=== PATIENT | male | born 1935 | race Caucasian/White ===

== ENCOUNTER 2017-12-24 17:35 | Inpatient (IN) | payer MEDICARE ==
[~2017-12-24] VITALS: Ht 177.8 cm; Wt 86.4 kg
[2017-12-24 18:04] LABS: BASOPHILS % (AUTO) 0.6 % (0.0-5.0); EOSINOPHILS % (AUTO) 3.6 % (0.0-8.0); HEMATOCRIT 43.8 % (42-54); LYMPHOCYTES % (AUTO) 19.6 % (21.0-51.0); MEAN CORPUSCULAR HEMOGLOBIN 31.9 pg (27.0-33.0); MEAN CORPUSCULAR HGB CONC 34.5 g/dL (32.0-36.0); MEAN CORPUSCULAR VOLUME 92.3 fL (79-99); MONOCYTES % (AUTO) 7.3 % (3.0-13.0); NEUTROPHILS % (AUTO) 68.9 % (40.0-77.0); NUCLEATED RED BLOOD CELLS 0.1 % (0.0-0.19); PLATELET COUNT (AUTO) 138 K/uL (130-400); RED BLOOD CELL COUNT(AUTO) 4.75 MIL/uL (4.50-6.20); RED CELL DISTRIBUTION WIDTH 14.2 % (11.0-15.5)
[2017-12-24 18:15] LABS: INR 1.63 (0.85-1.15)
[2017-12-24 18:24] LABS: CREATININE 1.5 mg/dL (0.5-1.5); POTASSIUM 4.9 mmol/L (3.5-5.1)
[2017-12-24 18:29] LABS: ALBUMIN 3.4 g/dL (3.5-5.0); BILIRUBIN,TOTAL 0.6 mg/dL (0.2-1.0)
[2017-12-24] MEDS ORDERED: MORPHINE SULFATE 2 MG/ML 1ML SYG ONE ×2 (19:48→22:13)
[2017-12-24 23:04] VITALS: BP 139/65
[2017-12-25] VITALS: BP 140/66
[2017-12-25] MEDS ORDERED: MORPHINE SULFATE 2 MG/ML 1ML SYG ONE (00:38)
[2017-12-25] MEDS ORDERED: ACETAMINOPHEN 325 MG TAB PO PRN (01:15)
[2017-12-25] MEDS ORDERED: HYDRALAZINE HCL 20 MG/ML VIAL IV PRN (01:15)
[2017-12-25] MEDS: SODIUM CHLORIDE 0.9% 1000ML 1,000 ML IV SCH ×2 (02:22→13:22)
[2017-12-25] MEDS ORDERED: WARF4TAB41 PO (02:37)
[2017-12-25] MEDS ORDERED: WARF2TAB57 PO (02:37)
[2017-12-25 04:00] VITALS: BP 130/76
[2017-12-25 05:46] LABS: HEMATOCRIT 41.9 % (42-54); MEAN CORPUSCULAR HEMOGLOBIN 32.1 pg (27.0-33.0); MEAN CORPUSCULAR HGB CONC 35.1 g/dL (32.0-36.0); MEAN CORPUSCULAR VOLUME 91.5 fL (79-99); NUCLEATED RED BLOOD CELLS 0.1 % (0.0-0.19); PLATELET COUNT (AUTO) 106 K/uL (130-400); RED BLOOD CELL COUNT(AUTO) 4.57 MIL/uL (4.50-6.20); RED CELL DISTRIBUTION WIDTH 14.1 % (11.0-15.5); WHITE BLOOD COUNT (AUTO) 8.1 K/uL (4.8-10.8)
[2017-12-25 05:51] LABS: INR 1.67 (0.85-1.15); PROTHROMBIN TIME 17.4 SEC (9.6-11.6)
[2017-12-25 05:54] LABS: CREATININE 1.2 mg/dL (0.5-1.5); POTASSIUM 5.3 mmol/L (3.5-5.1)
[2017-12-25] MEDS: INSULIN HUMULIN R 100 UNIT/ML 3ML SQ SCH ×4 (06:29→20:30)
[2017-12-25 07:53] VITALS: BP 141/81
[2017-12-25] MEDS: MORPHINE SULFATE 2 MG/ML 1ML SYG IVP PRN (08:06)
[2017-12-25] MEDS ORDERED: KETOROLAC TROMETHAMINE 30MG/ML ONE (08:48)
[2017-12-25] MEDS: KETOROLAC TROMETHAMINE 60 MG/2 ML VIAL IV SCH (09:00)
[2017-12-25] MEDS ORDERED: ENOXAPARIN SODIUM 40 MG/0.4 ML SYRINGE SQ SCH (09:00)
[2017-12-25 11:16] VITALS: BP 106/64
[2017-12-25] MEDS: MEPERIDINE HCL/PF 25 MG/0.5 ML AMPUL IM PRN ×2 (12:09→17:39)
[2017-12-25] MEDS: PROMETHAZINE HCL 25 MG/ML 1ML AMPULE IM PRN ×2 (12:11→17:39)
[2017-12-25] MEDS ORDERED: INSLAN SQ (12:30)
[2017-12-25] MEDS ORDERED: DILT180C94 PO (12:30)
[2017-12-25] MEDS ORDERED: PANT40TA25 PO (12:30)
[2017-12-25] MEDS ORDERED: LISI10TA7 PO (12:30)
[2017-12-25] MEDS ORDERED: TRAM50TA4 PO (12:30)
[2017-12-25] MEDS ORDERED: PREG150C PO (12:30)
[2017-12-25] MEDS ORDERED: ATOR40TA69 PO (12:30)
[2017-12-25] MEDS ORDERED: CHOL100018 PO (12:30)
[2017-12-25] MEDS ORDERED: VENL75CA97 PO (12:30)
[2017-12-25] MEDS ORDERED: LEVE500T19 PO (12:30)
[2017-12-25] MEDS ORDERED: LEVO25TA54 PO (12:30)
[2017-12-25 16:37] VITALS: BP 139/67
[2017-12-25 20:00] VITALS: BP 140/74
[2017-12-25] MEDS: LEVETIRACETAM 500 MG TABLET PO SCH (21:10)
[2017-12-25] MEDS: PREGABALIN 75 MG CAPSULE PO SCH (21:11)
[2017-12-26] VITALS: BP 124/68
[2017-12-26 04:00] VITALS: BP 145/78
[2017-12-26] MEDS: MORPHINE SULFATE 2 MG/ML 1ML SYG IVP PRN ×3 (04:22→21:43)
[2017-12-26 05:52] LABS: HEMATOCRIT 37.7 % (42-54); MEAN CORPUSCULAR HEMOGLOBIN 32.5 pg (27.0-33.0); MEAN CORPUSCULAR HGB CONC 35.4 g/dL (32.0-36.0); PLATELET COUNT (AUTO) 93 K/uL (130-400); RED BLOOD CELL COUNT(AUTO) 4.09 MIL/uL (4.50-6.20); RED CELL DISTRIBUTION WIDTH 14.6 % (11.0-15.5); WHITE BLOOD COUNT (AUTO) 6.8 K/uL (4.8-10.8)
[2017-12-26 06:01] LABS: INR 1.61 (0.85-1.15); PARTIAL THROMBOPLASTIN TIME 35.5 SEC (26.3-35.5); PROTHROMBIN TIME 16.7 SEC (9.6-11.6)
[2017-12-26 06:06] LABS: CREATININE 1.5 mg/dL (0.5-1.5); MAGNESIUM 1.7 mg/dL (1.80-2.40); POTASSIUM 4.7 mmol/L (3.5-5.1)
[2017-12-26] MEDS: INSULIN HUMULIN R 100 UNIT/ML 3ML SQ SCH ×4 (06:15→21:24)
[2017-12-26] MEDS: LEVOTHYROXINE 25 MCG TABLET PO SCH (06:51)
[2017-12-26 07:58] VITALS: BP 139/75
[2017-12-26] MEDS: PREGABALIN 75 MG CAPSULE PO SCH ×2 (08:45→21:16)
[2017-12-26] MEDS: LISINOPRIL 10 MG TABLET PO SCH (08:46)
[2017-12-26] MEDS: VENLAFAXINE HCL XR 37.5 MG CAP PO SCH (08:46)
[2017-12-26] MEDS: LEVETIRACETAM 500 MG TABLET PO SCH (08:46)
[2017-12-26] MEDS: DILTIAZEM HCL 180 MG CAP.SR.24H PO SCH (08:46)
[2017-12-26] MEDS: KETOROLAC TROMETHAMINE 60 MG/2 ML VIAL IV SCH (09:00)
[2017-12-26] MEDS ORDERED: COMPOUND IV MISC 1 EACH IVSOLN MISC PRN (11:00)
[2017-12-26 11:39] VITALS: BP 155/85
[2017-12-26] MEDS: LEVETIRACETAM 750 MG in SODIUM CHLORIDE 0.9% 100 ML IV SCH (12:12)
[2017-12-26] MEDS: SODIUM CHLORIDE 0.9% 1000ML 1,000 ML IV SCH (15:12)
[2017-12-26 16:24] VITALS: BP 151/56
[2017-12-26] MEDS ORDERED: CEFAZOLIN SODIUM 1 GM VIAL IVP SCH (18:30)
[2017-12-26 20:00] VITALS: BP 114/67
[2017-12-27] VITALS (24 sets, daily range): BP systolic 102–166; BP diastolic 51–98
[2017-12-27] MEDS: LEVETIRACETAM 750 MG in SODIUM CHLORIDE 0.9% 100 ML IV SCH ×2 (00:06→12:03)
[2017-12-27] MEDS ORDERED: MORPHINE SULFATE 4 MG/1ML SYG ONE ×2 (02:54→10:51)
[2017-12-27 05:46] LABS: HEMATOCRIT 35.1 % (42-54); MEAN CORPUSCULAR HEMOGLOBIN 32.6 pg (27.0-33.0); MEAN CORPUSCULAR HGB CONC 35.3 g/dL (32.0-36.0); MEAN CORPUSCULAR VOLUME 92.3 fL (79-99); PLATELET COUNT (AUTO) 87 K/uL (130-400); RED CELL DISTRIBUTION WIDTH 14.3 % (11.0-15.5); WHITE BLOOD COUNT (AUTO) 5.8 K/uL (4.8-10.8)
[2017-12-27 05:55] LABS: CREATININE 1.2 mg/dL (0.5-1.5); MAGNESIUM 1.7 mg/dL (1.80-2.40); POTASSIUM 4.4 mmol/L (3.5-5.1)
[2017-12-27 05:56] LABS: INR 1.23 (0.85-1.15); PARTIAL THROMBOPLASTIN TIME 31.9 SEC (26.3-35.5); PROTHROMBIN TIME 12.9 SEC (9.6-11.6)
[2017-12-27] MEDS ORDERED: CEFAZOLIN SODIUM 1 GM VIAL IVP SCH (06:00)
[2017-12-27] MEDS ORDERED: DEXAMETHASONE SOD PHOSPHATE 10MG/ML 1ML VIAL ONE (06:56)
[2017-12-27] MEDS ORDERED: LIDOCAINE PF 2% 5ML ABBOJECT ONE (06:56)
[2017-12-27] MEDS ORDERED: GLYCOPYRROLATE 0.2 MG/ML 5 ML VIAL ONE (06:56)
[2017-12-27] MEDS ORDERED: PROPOFOL 10 MG/ML 20ML VIAL IV ONE (06:57)
[2017-12-27] MEDS ORDERED: MIDAZOLAM HCL 1 MG/ML 2ML VIAL ONE (06:57)
[2017-12-27] MEDS ORDERED: FENTANYL CITRATE PF 50 MCG/1 ML 2ML VIAL ONE ×2 (06:57→09:05)
[2017-12-27] MEDS: LEVOTHYROXINE 25 MCG TABLET PO SCH (07:30)
[2017-12-27] MEDS: INSULIN HUMULIN R 100 UNIT/ML 3ML SQ SCH ×4 (07:30→22:27)
[2017-12-27] MEDS ORDERED: ROPIVACAINE 0.5% 5MG/ML 30ML IJ ONE (08:26)
[2017-12-27] MEDS: KETOROLAC TROMETHAMINE 60 MG/2 ML VIAL IV SCH (09:00)
[2017-12-27] MEDS: LISINOPRIL 10 MG TABLET PO SCH (09:00)
[2017-12-27] MEDS: DILTIAZEM HCL 180 MG CAP.SR.24H PO SCH (11:06)
[2017-12-27] MEDS: VENLAFAXINE HCL XR 37.5 MG CAP PO SCH (11:06)
[2017-12-27] MEDS: PREGABALIN 75 MG CAPSULE PO SCH ×2 (11:06→22:35)
[2017-12-27] MEDS: MEPERIDINE HCL/PF 25 MG/0.5 ML AMPUL IM PRN (11:24)
[2017-12-27] MEDS: PROMETHAZINE HCL 25 MG/ML 1ML AMPULE IM PRN (11:24)
[2017-12-27] MEDS: CEFAZOLIN SODIUM 1 GM VIAL IVP SCH (17:04)
[2017-12-27] MEDS ORDERED: WARFARIN SODIUM 2 MG TAB PO SCH (18:15)
[2017-12-27] MEDS ORDERED: MAGNESIUM SULFATE 1 GM in SODIUM CHLORIDE 0.9% 50 ML IV SCH (18:15)
[2017-12-27] MEDS: MORPHINE SULFATE 2 MG/ML 1ML SYG IVP PRN ×2 (18:18→22:38)
[2017-12-27] MEDS: ENOXAPARIN SODIUM 40 MG/0.4 ML SYRINGE SQ SCH (18:22)
[2017-12-27] MEDS: SODIUM CHLORIDE 0.9% 1000ML 1,000 ML IV SCH (22:35)
[2017-12-28] VITALS: BP 127/83
[2017-12-28] MEDS: CEFAZOLIN SODIUM 1 GM VIAL IVP SCH (00:19)
[2017-12-28] MEDS: LEVETIRACETAM 750 MG in SODIUM CHLORIDE 0.9% 100 ML IV SCH ×3 (00:19→22:14)
[2017-12-28] MEDS: SODIUM CHLORIDE 0.9% 1000ML 1,000 ML IV SCH ×2 (01:22→22:14)
[2017-12-28 04:00] VITALS: BP 131/89
[2017-12-28 05:48] LABS: HEMATOCRIT 28.1 % (42-54); MEAN CORPUSCULAR HEMOGLOBIN 33.7 pg (27.0-33.0); MEAN CORPUSCULAR HGB CONC 36.4 g/dL (32.0-36.0); MEAN CORPUSCULAR VOLUME 92.5 fL (79-99); NUCLEATED RED BLOOD CELLS 0.1 % (0.0-0.19); PLATELET COUNT (AUTO) 95 K/uL (130-400); RED BLOOD CELL COUNT(AUTO) 3.04 MIL/uL (4.50-6.20); RED CELL DISTRIBUTION WIDTH 14.5 % (11.0-15.5)
[2017-12-28] MEDS: LEVOTHYROXINE 25 MCG TABLET PO SCH (05:56)
[2017-12-28 05:58] LABS: CREATININE 1.3 mg/dL (0.5-1.5); MAGNESIUM 1.6 mg/dL (1.80-2.40); POTASSIUM 4.5 mmol/L (3.5-5.1)
[2017-12-28] MEDS: INSULIN HUMULIN R 100 UNIT/ML 3ML SQ SCH ×4 (06:02→21:16)
[2017-12-28 06:17] LABS: INR 1.78 (0.85-1.15); PROTHROMBIN TIME 18.5 SEC (9.6-11.6)
[2017-12-28 07:59] VITALS: BP 111/64
[2017-12-28 08:03] LABS: BAND NEUTROPHILS % (MANUAL) 1 % (0-2); LYMPHOCYTES % (MANUAL) 17 % (22-44); MAN.DIFF COMMENT-IMPRESSION MANUAL DIFFERENTIAL; MONOCYTES % (MANUAL) 7 % (2-9); SEGMENTED NEUTROPHILS % 75 % (40-70)
[2017-12-28 08:04] LABS: PLATELET MORPHOLOGY COMMENT DECREASED
[2017-12-28] MEDS: ENOXAPARIN SODIUM 40 MG/0.4 ML SYRINGE SQ SCH (09:00)
[2017-12-28] MEDS: KETOROLAC TROMETHAMINE 60 MG/2 ML VIAL IV SCH (09:00)
[2017-12-28] MEDS: DILTIAZEM HCL 180 MG CAP.SR.24H PO SCH (09:06)
[2017-12-28] MEDS: LISINOPRIL 10 MG TABLET PO SCH (09:06)
[2017-12-28] MEDS: PREGABALIN 75 MG CAPSULE PO SCH ×2 (09:07→21:06)
[2017-12-28] MEDS: VENLAFAXINE HCL XR 37.5 MG CAP PO SCH (09:07)
[2017-12-28] MEDS: MORPHINE SULFATE 2 MG/ML 1ML SYG IVP PRN (09:44)
[2017-12-28 12:00] VITALS: BP 112/58
[2017-12-28] MEDS: WARFARIN SODIUM 2 MG TAB PO SCH (16:00)
[2017-12-28] MEDS ORDERED: WARFARIN SODIUM 2 MG TAB PO SCH (16:00)
[2017-12-28 16:56] VITALS: BP 137/65
[2017-12-28 19:23] VITALS: BP 128/59
[2017-12-29] VITALS: BP 124/65
[2017-12-29 04:00] VITALS: BP 128/67
[2017-12-29 05:07] LABS: INR 1.83 (0.85-1.15)
[2017-12-29] MEDS: LEVOTHYROXINE 25 MCG TABLET PO SCH (05:25)
[2017-12-29] MEDS: INSULIN HUMULIN R 100 UNIT/ML 3ML SQ SCH ×4 (05:59→20:57)
[2017-12-29 08:11] VITALS: BP 128/68
[2017-12-29] MEDS: KETOROLAC TROMETHAMINE 60 MG/2 ML VIAL IV SCH (09:00)
[2017-12-29] MEDS: DILTIAZEM HCL 180 MG CAP.SR.24H PO SCH (10:05)
[2017-12-29] MEDS: LISINOPRIL 10 MG TABLET PO SCH (10:06)
[2017-12-29] MEDS: VENLAFAXINE HCL XR 37.5 MG CAP PO SCH (10:06)
[2017-12-29 12:08] VITALS: BP 107/63
[2017-12-29] MEDS: LEVETIRACETAM 750 MG in SODIUM CHLORIDE 0.9% 100 ML IV SCH ×2 (12:31→23:18)
[2017-12-29] MEDS ORDERED: WARFARIN SODIUM 2 MG TAB PO SCH (16:00)
[2017-12-29] MEDS: DOCUSATE SODIUM 100 MG CAP PO SCH ×2 (16:42→20:54)
[2017-12-29] MEDS: SODIUM CHLORIDE 0.9% 1000ML 1,000 ML IV SCH (17:22)
[2017-12-29 17:26] VITALS: BP 122/67
[2017-12-29] MEDS ORDERED: LACTULOSE 20 GM/30 ML UDCUP PO PRN (18:45)
[2017-12-29 20:00] VITALS: BP 113/64
[2017-12-29] MEDS: ACETAMINOPHEN EXTRA STRENGTH 500 MG TABLET PO SCH (23:22)
[2017-12-30] VITALS: BP 120/58
[2017-12-30 04:00] VITALS: BP 126/67
[2017-12-30] MEDS: INSULIN HUMULIN R 100 UNIT/ML 3ML SQ SCH ×3 (06:06→17:57)
[2017-12-30] MEDS: LEVOTHYROXINE 25 MCG TABLET PO SCH (06:28)
[2017-12-30] MEDS: ACETAMINOPHEN EXTRA STRENGTH 500 MG TABLET PO SCH ×3 (06:28→17:59)
[2017-12-30 08:14] VITALS: BP 112/68
[2017-12-30] MEDS: DILTIAZEM HCL 180 MG CAP.SR.24H PO SCH (08:35)
[2017-12-30] MEDS: DOCUSATE SODIUM 100 MG CAP PO SCH (08:35)
[2017-12-30] MEDS: LISINOPRIL 10 MG TABLET PO SCH (08:36)
[2017-12-30] MEDS: VENLAFAXINE HCL XR 37.5 MG CAP PO SCH (08:36)
[2017-12-30] MEDS: MORPHINE SULFATE 2 MG/ML 1ML SYG IVP PRN (08:43)
[2017-12-30 12:00] VITALS: BP 138/75
[2017-12-30] MEDS: LEVETIRACETAM 750 MG in SODIUM CHLORIDE 0.9% 100 ML IV SCH (12:57)
[2017-12-30] MEDS: SODIUM CHLORIDE 0.9% 1000ML 1,000 ML IV SCH (13:22)
[2017-12-30 16:00] VITALS: BP 116/73
[2017-12-30] MEDS: WARFARIN SODIUM 2 MG TAB PO SCH (17:58)
[2017-12-31 00:38] VITALS: BP 127/89
[2017-12-31] MEDS: INSULIN HUMULIN R 100 UNIT/ML 3ML SQ SCH ×2 (01:10→06:40)
[2017-12-31] MEDS: DOCUSATE SODIUM 100 MG CAP PO SCH ×2 (01:11→08:44)
[2017-12-31] MEDS: ACETAMINOPHEN EXTRA STRENGTH 500 MG TABLET PO SCH ×2 (01:12→06:44)
[2017-12-31] MEDS: LEVETIRACETAM 750 MG in SODIUM CHLORIDE 0.9% 100 ML IV SCH (01:12)
[2017-12-31 04:12] VITALS: BP 138/67
[2017-12-31] MEDS: LEVOTHYROXINE 25 MCG TABLET PO SCH (06:44)
[2017-12-31 07:47] VITALS: BP 157/98
[2017-12-31] MEDS: VENLAFAXINE HCL XR 37.5 MG CAP PO SCH (08:44)
[2017-12-31] MEDS: DILTIAZEM HCL 180 MG CAP.SR.24H PO SCH (08:44)
[2017-12-31] MEDS: LISINOPRIL 10 MG TABLET PO SCH (08:45)
[2017-12-31] MEDS ORDERED: WARFARIN SODIUM 2 MG TAB PO SCH (16:00)
[2018-01-03] MEDS ORDERED: WARFARIN SODIUM 2 MG TAB PO SCH (16:00)
== END 2017-12-31 10:04 | DRG 470 ==
LOC: EDH 17:35 → EDHIP 21:19 → 4CH 22:27 → 4BH 12-27 20:24
PROVIDERS: ADMIT Family Medicine; ATTEND Family Medicine
PROC: 0SRS0JA Replacement of Left Hip Joint, Femoral Surface with Synthetic Substitute, Uncemented, Open Approach (ICD-10-PCS; principal; 2017-12-27 07:30)
DX: S72.002A Fracture of unspecified part of neck of left femur, initial encounter for closed fracture (principal); E83.42 Hypomagnesemia; I69.354 Hemiplegia and hemiparesis following cerebral infarction affecting left non-dominant side; R56.9 Unspecified convulsions; E11.9 Type 2 diabetes mellitus without complications; E86.0 Dehydration; I48.2 Chronic atrial fibrillation; E03.9 Hypothyroidism, unspecified; E78.5 Hyperlipidemia, unspecified; I10 Essential (primary) hypertension; W01.0XXA Fall on same level from slipping, tripping and stumbling without subsequent striking against object, initial encounter; R79.1 Abnormal coagulation profile; Z79.01 Long term (current) use of anticoagulants; Z80.42 Family history of malignant neoplasm of prostate; Y93.89 Activity, other specified; Y99.8 Other external cause status; Y92.098 Other place in other non-institutional residence as the place of occurrence of the external cause; Z88.5 Allergy status to narcotic agent
CPT/HCPCS: 36415; 70450; 71045; 72125; 73502; 73503; 80048; 80053; 82550; 82948; 83735; 84484; 85025; 85027; 85610; 85730; 86850; 86900; 86901; 88305; 88311; 93005; 93306; 93880; 97039; A4218; C1776; J0690; J1100; J1650; J1815; J1885; J1953; J2001; J2175; J2250; J2270; J2550; J2704; J2795; J3010; J3475; J3490; J7030

== ENCOUNTER 2018-02-01 18:00 | Inpatient (IN) | payer MEDICARE ==
[~2018-02-01] VITALS: Ht 177.8 cm; Wt 81.7 kg
[~2018-02-01 18:00] MED LIST: ATOR40TA69 PO; CHOL100018 PO; DILT180C94 PO; INSLAN SQ; LEVE500T19 PO; LEVO25TA54 PO; LISI10TA7 PO; PANT40TA25 PO; PREG150C PO; TRAM50TA4 PO; VENL75CA97 PO; WARF2TAB57 PO; WARF4TAB41 PO
[2018-02-01 18:40] LABS: BASOPHILS % (AUTO) 0.7 % (0.0-5.0); EOSINOPHILS % (AUTO) 3.6 % (0.0-8.0); LYMPHOCYTES % (AUTO) 20.7 % (21.0-51.0); MEAN CORPUSCULAR HEMOGLOBIN 27.4 pg (27.0-33.0); MEAN CORPUSCULAR HGB CONC 32.5 g/dL (32.0-36.0); MEAN CORPUSCULAR VOLUME 84.3 fL (79-99); MONOCYTES % (AUTO) 8.7 % (3.0-13.0); NEUTROPHILS % (AUTO) 66.3 % (40.0-77.0); PLATELET COUNT (AUTO) 360 K/uL (130-400); RED CELL DISTRIBUTION WIDTH 17.1 % (11.0-15.5); WHITE BLOOD COUNT (AUTO) 5.2 K/uL (4.8-10.8)
[2018-02-01 18:58] LABS: CREATININE 1.5 mg/dL (0.5-1.5)
[2018-02-01 19:02] LABS: ALBUMIN 3.2 g/dL (3.5-5.0); BILIRUBIN,TOTAL 0.6 mg/dL (0.2-1.0); CRP QUANTITATIVE 69.1 mg/L (0.00-9.0); TOTAL PROTEIN, SERUM 7.2 g/dL (6.0-8.3)
[2018-02-01 19:52] LABS: ERYTHROCYTE SEDIMENTATION RATE 70 MM/HR (0-15)
[2018-02-01] MEDS ORDERED: TRAMADOL HCL 50 MG TABLET ONE (20:02)
[2018-02-01] MEDS ORDERED: SODIUM CHLORIDE 0.9% 1000ML 1,000 ML IV SCH (20:29)
[2018-02-01] MEDS ORDERED: GLUCAGON 1MG KIT 1 MG ML IM PRN (21:30)
[2018-02-01] MEDS ORDERED: DEXTROSE 50%-WATER 50 ML DISP.SYRIN IV PRN (21:30)
[2018-02-01] MEDS ORDERED: HYDRALAZINE HCL 20 MG/ML VIAL IM PRN (21:30)
[2018-02-01] MEDS ORDERED: MORPHINE SULFATE 4 MG/1ML SYG IM PRN (21:30)
[2018-02-01 22:23] LABS: APPEARANCE,URINE Clear (CLEAR); BILIRUBIN,URINE Negative (NEGATIVE); COLOR,URINE Yellow (YELLOW); GLUCOSE, URINE (UA) Negative (NEGATIVE); KETONES,URINE Negative (NEGATIVE); LEUKOCYTE ESTERASE ,URINE Negative (NEGATIVE); NITRATE,URINE Negative (NEGATIVE); OCCULT BLOOD,URINE Negative (NEGATIVE); PROTEIN,URINE Negative (NEGATIVE)
[2018-02-01] MEDS ORDERED: SODIUM CHLORIDE 0.9% 1000ML 1,000 ML IV ONE (22:50)
[2018-02-01 23:05] VITALS: BP 117/66
[2018-02-01 23:25] VITALS: BP 130/93
[2018-02-02] VITALS (20 sets, daily range): BP systolic 103–133; BP diastolic 53–84
[2018-02-02] MEDS: IPRATROPIUM 0.5 MG/2.5 ML INH IH SCH ×5 (00:03→23:35)
[2018-02-02] MEDS: DEXTROSE 5 % AND 0.9 % NACL 1,000 ML IV SCH ×3 (00:40→23:15)
[2018-02-02] MEDS ORDERED: VENL75CA55 PO (01:31)
[2018-02-02] MEDS ORDERED: LEVE250T PO (01:31)
[2018-02-02] MEDS ORDERED: INSU10VI3 SQ (01:31)
[2018-02-02] MEDS ORDERED: FURO-151 PO (01:31)
[2018-02-02] MEDS ORDERED: PREG75 PO (01:31)
[2018-02-02] MEDS ORDERED: APIX2.5T PO (01:31)
[2018-02-02] MEDS: INSULIN HUMULIN R 100 UNIT/ML 3ML SQ SCH ×3 (06:15→16:50)
[2018-02-02] MEDS: PANTOPRAZOLE SODIUM 40 MG TABLET.DR PO SCH (09:33)
[2018-02-02] MEDS ORDERED: RENAL DOSE IV PRN (15:00)
[2018-02-02] MEDS ORDERED: TRAM50TA2 PO (16:02)
[2018-02-02] MEDS ORDERED: PREG150C PO (16:02)
[2018-02-02] MEDS: LEVOFLOXACIN 750 MG/D5W 150 ML 150 ML IV SCH (16:52)
[2018-02-02] MEDS: MORPHINE SULFATE 4 MG/1ML SYG IV PRN (18:05)
[2018-02-02 18:19] LABS: INR 1.02 (0.85-1.15); PARTIAL THROMBOPLASTIN TIME 29.2 SEC (26.3-35.5); PROTHROMBIN TIME 10.7 SEC (9.6-11.6)
[2018-02-02] MEDS ORDERED: VANCOMYCIN HCL 1 GM VIAL ONE (18:23)
[2018-02-02] MEDS ORDERED: PROPOFOL 10 MG/ML 20ML VIAL IV ONE (19:27)
[2018-02-02] MEDS ORDERED: ONDANSETRON HCL MDV 20ML 2 MG/ML VIAL ONE (20:14)
[2018-02-02] MEDS ORDERED: FENTANYL CITRATE PF 50 MCG/1 ML 2ML VIAL ONE (20:14)
[2018-02-02] MEDS ORDERED: LIDOCAINE PF 2% 5ML ABBOJECT ONE (20:14)
[2018-02-02] MEDS ORDERED: ROCURONIUM BROMIDE 10MG/1ML 5ML VL ONE (20:14)
[2018-02-02] MEDS ORDERED: MEPERIDINE-PF 25 MG/ML SYG ONE ×2 (21:22→21:43)
[2018-02-03] VITALS (11 sets, daily range): BP systolic 83–138; BP diastolic 44–77
[2018-02-03] MEDS: INSULIN HUMULIN R 100 UNIT/ML 3ML SQ SCH ×5 (00:33→21:00)
[2018-02-03] MEDS: ZOSYN 3.375GM+NS 50ML 50 ML IV SCH ×3 (03:00→19:49)
[2018-02-03] MEDS: MORPHINE SULFATE 4 MG/1ML SYG IV PRN ×4 (04:27→20:54)
[2018-02-03] MEDS: IPRATROPIUM 0.5 MG/2.5 ML INH IH SCH ×3 (06:59→18:21)
[2018-02-03] MEDS: ONDANSETRON HCL MDV 20ML 2 MG/ML VIAL IVP PRN (09:21)
[2018-02-03] MEDS: ENOXAPARIN SODIUM 30 MG/0.3 ML SQ SCH ×2 (09:22→20:50)
[2018-02-03] MEDS: PANTOPRAZOLE SODIUM 40 MG TABLET.DR PO SCH (09:22)
[2018-02-03] MEDS ORDERED: VANCOMYCIN PROTOCOL PER PHARMACY IV SCH (12:15)
[2018-02-03] MEDS ORDERED: COMPOUND IV REFRIGERATED 1 EACH IVSOLN MISC PRN (12:30)
[2018-02-03 16:07] LABS: HEMATOCRIT 27.1 % (42-54); MEAN CORPUSCULAR HEMOGLOBIN 27.9 pg (27.0-33.0); MEAN CORPUSCULAR HGB CONC 33.2 g/dL (32.0-36.0); MEAN CORPUSCULAR VOLUME 83.9 fL (79-99); PLATELET COUNT (AUTO) 314 K/uL (130-400); RED BLOOD CELL COUNT(AUTO) 3.23 MIL/uL (4.50-6.20); WHITE BLOOD COUNT (AUTO) 5.7 K/uL (4.8-10.8)
[2018-02-03] MEDS: DEXTROSE 5 % AND 0.9 % NACL 1,000 ML IV SCH (16:21)
[2018-02-03] MEDS: VANCOMYCIN 1.25 GM in SODIUM CHLORIDE 0.9% 250 ML IV SCH (16:22)
[2018-02-03 18:09] LABS: EOSINOPHILS % (MANUAL) 3 % (1-6); LYMPHOCYTES % (MANUAL) 12 % (22-44); MAN.DIFF COMMENT-IMPRESSION MANUAL DIFFERENTIAL; MONOCYTES % (MANUAL) 17 % (2-9); SEGMENTED NEUTROPHILS % 68 % (40-70)
[2018-02-03 18:12] LABS: PLATELET MORPHOLOGY COMMENT LARGE PLTS PRESENT
[2018-02-04] MEDS: MORPHINE SULFATE 4 MG/1ML SYG IV PRN ×3 (02:30→15:10)
[2018-02-04] MEDS: ZOSYN 3.375GM+NS 50ML 50 ML IV SCH ×3 (02:30→19:18)
[2018-02-04] MEDS: DEXTROSE 5 % AND 0.9 % NACL 1,000 ML IV SCH ×2 (02:50→15:04)
[2018-02-04 03:14] VITALS: BP 130/72
[2018-02-04 04:39] LABS: HEMATOCRIT 25.7 % (42-54); MEAN CORPUSCULAR HEMOGLOBIN 29.3 pg (27.0-33.0); MEAN CORPUSCULAR HGB CONC 34.7 g/dL (32.0-36.0); MEAN CORPUSCULAR VOLUME 84.5 fL (79-99); PLATELET COUNT (AUTO) 287 K/uL (130-400); RED BLOOD CELL COUNT(AUTO) 3.04 MIL/uL (4.50-6.20); RED CELL DISTRIBUTION WIDTH 16.9 % (11.0-15.5); WHITE BLOOD COUNT (AUTO) 4.5 K/uL (4.8-10.8)
[2018-02-04 04:49] LABS: CREATININE 1.3 mg/dL (0.5-1.5); MAGNESIUM 1.1 mg/dL (1.80-2.40); POTASSIUM 3.8 mmol/L (3.5-5.1)
[2018-02-04] MEDS: IPRATROPIUM 0.5 MG/2.5 ML INH IH SCH ×4 (06:46→18:15)
[2018-02-04] MEDS: INSULIN HUMULIN R 100 UNIT/ML 3ML SQ SCH ×4 (06:48→21:00)
[2018-02-04 08:00] VITALS: BP 119/74
[2018-02-04] MEDS: LEVOTHYROXINE 25 MCG TABLET PO SCH (08:14)
[2018-02-04] MEDS: ENOXAPARIN SODIUM 30 MG/0.3 ML SQ SCH ×2 (09:15→21:00)
[2018-02-04] MEDS: PANTOPRAZOLE SODIUM 40 MG TABLET.DR PO SCH (09:16)
[2018-02-04 11:00] VITALS: BP 121/67
[2018-02-04] MEDS ORDERED: MAGNESIUM 2GM PREMIX 50ML 50 ML IV SCH (11:30)
[2018-02-04] MEDS: ONDANSETRON HCL MDV 20ML 2 MG/ML VIAL IVP PRN (14:00)
[2018-02-04] MEDS: LEVOFLOXACIN 750 MG/D5W 150 ML 150 ML IV SCH (15:04)
[2018-02-04] MEDS: VANCOMYCIN 1.25 GM in SODIUM CHLORIDE 0.9% 250 ML IV SCH (15:04)
[2018-02-04 16:00] VITALS: BP 116/66
[2018-02-04 19:03] VITALS: BP 118/76
[2018-02-04] MEDS: LACTULOSE 20 GM/30 ML UDCUP PO PRN (21:02)
[2018-02-04 23:04] VITALS: BP 129/71
[2018-02-05] MEDS: ZOSYN 3.375GM+NS 50ML 50 ML IV SCH ×3 (02:47→20:02)
[2018-02-05 03:11] VITALS: BP 122/77
[2018-02-05] MEDS: DEXTROSE 5 % AND 0.9 % NACL 1,000 ML IV SCH ×2 (04:56→20:01)
[2018-02-05] MEDS: LEVOTHYROXINE 25 MCG TABLET PO SCH (06:00)
[2018-02-05] MEDS: MORPHINE SULFATE 4 MG/1ML SYG IV PRN ×2 (06:01→11:16)
[2018-02-05] MEDS: INSULIN HUMULIN R 100 UNIT/ML 3ML SQ SCH ×4 (06:06→21:00)
[2018-02-05] MEDS: IPRATROPIUM 0.5 MG/2.5 ML INH IH SCH ×4 (06:42→18:41)
[2018-02-05 07:01] LABS: CREATININE 1.2 mg/dL (0.5-1.5); MAGNESIUM 1.6 mg/dL (1.80-2.40)
[2018-02-05 08:02] VITALS: BP 144/56
[2018-02-05] MEDS: PANTOPRAZOLE SODIUM 40 MG TABLET.DR PO SCH (10:10)
[2018-02-05] MEDS: ENOXAPARIN SODIUM 30 MG/0.3 ML SQ SCH ×2 (10:14→21:00)
[2018-02-05] MEDS: LACTULOSE 20 GM/30 ML UDCUP PO PRN (11:11)
[2018-02-05 11:58] VITALS: BP 126/69
[2018-02-05] MEDS: VANCOMYCIN 1.25 GM in SODIUM CHLORIDE 0.9% 250 ML IV SCH (14:37)
[2018-02-05 15:37] VITALS: BP 147/61
[2018-02-05 17:36] LABS: HEMATOCRIT 26.4 % (42-54); MEAN CORPUSCULAR HEMOGLOBIN 27.4 pg (27.0-33.0); MEAN CORPUSCULAR HGB CONC 32.4 g/dL (32.0-36.0); MEAN CORPUSCULAR VOLUME 84.6 fL (79-99); PLATELET COUNT (AUTO) 267 K/uL (130-400); RED BLOOD CELL COUNT(AUTO) 3.12 MIL/uL (4.50-6.20); WHITE BLOOD COUNT (AUTO) 5.1 K/uL (4.8-10.8)
[2018-02-05 17:46] LABS: INR 1.09 (0.85-1.15); PARTIAL THROMBOPLASTIN TIME 33.3 SEC (26.3-35.5); PROTHROMBIN TIME 11.4 SEC (9.6-11.6)
[2018-02-05 18:03] LABS: EOSINOPHILS % (MANUAL) 2 % (1-6); LYMPHOCYTES % (MANUAL) 12 % (22-44); MONOCYTES % (MANUAL) 8 % (2-9); PLATELET MORPHOLOGY COMMENT ADEQUATE; REACTIVE LYMPHOCYTES 4 % (0-0); SEGMENTED NEUTROPHILS % 74 % (40-70)
[2018-02-05 19:04] VITALS: BP 133/66
[2018-02-05] MEDS: LEVETIRACETAM 500 MG TABLET PO SCH (20:24)
[2018-02-05] MEDS: ATORVASTATIN CALCIUM 40 MG TABLET PO SCH (20:24)
[2018-02-05] MEDS: **HM**Cholecalciferol (Vitamin D3) (Vitamin D3) 1,000 UNIT PO SCH (20:25)
[2018-02-05] MEDS: PREGABALIN 75 MG CAPSULE PO SCH (20:25)
[2018-02-05] MEDS: FUROSEMIDE 40 MG TABLET PO SCH (20:25)
[2018-02-05 23:12] VITALS: BP 130/69
[2018-02-06] VITALS (22 sets, daily range): BP systolic 95–136; BP diastolic 50–93
[2018-02-06] MEDS: ZOSYN 3.375GM+NS 50ML 50 ML IV SCH ×3 (02:53→17:52)
[2018-02-06] MEDS: MORPHINE SULFATE 4 MG/1ML SYG IV PRN ×2 (04:30→23:04)
[2018-02-06] MEDS: INSULIN HUMULIN R 100 UNIT/ML 3ML SQ SCH ×4 (06:30→23:11)
[2018-02-06] MEDS: LEVOTHYROXINE 25 MCG TABLET PO SCH (06:30)
[2018-02-06] MEDS: IPRATROPIUM 0.5 MG/2.5 ML INH IH SCH ×5 (06:34→23:35)
[2018-02-06 07:04] LABS: CREATININE 1.2 mg/dL (0.5-1.5); MAGNESIUM 1.2 mg/dL (1.80-2.40); POTASSIUM 3.2 mmol/L (3.5-5.1)
[2018-02-06] MEDS ORDERED: PROPOFOL 10 MG/ML 20ML VIAL IV ONE (07:25)
[2018-02-06] MEDS ORDERED: GENTAMICIN SULFATE 80 MG/2 ML VIAL ONE ×2 (07:26→09:31)
[2018-02-06] MEDS ORDERED: VANCOMYCIN HCL 1 GM VIAL ONE (07:26)
[2018-02-06] MEDS ORDERED: FENTANYL CITRATE PF 50 MCG/1 ML 2ML VIAL ONE ×3 (07:26→09:20)
[2018-02-06] MEDS ORDERED: SODIUM CHLORIDE 0.9% 1000ML 1,000 ML IV ONE (07:59)
[2018-02-06] MEDS: DEXTROSE 5 % AND 0.9 % NACL 1,000 ML IV SCH ×2 (08:10→21:30)
[2018-02-06] MEDS ORDERED: MINERAL OIL 25 ML OIL TP ONE (08:48)
[2018-02-06] MEDS: DILTIAZEM HCL 180 MG CAP.SR.24H PO SCH (09:00)
[2018-02-06] MEDS: LEVETIRACETAM 500 MG TABLET PO SCH ×2 (09:00→23:08)
[2018-02-06] MEDS: PREGABALIN 75 MG CAPSULE PO SCH ×2 (09:00→23:07)
[2018-02-06] MEDS: FUROSEMIDE 40 MG TABLET PO SCH ×2 (09:00→23:08)
[2018-02-06] MEDS ORDERED: VECURONIUM BROMIDE 10 MG ML IV ONE (09:00)
[2018-02-06] MEDS: VENLAFAXINE HCL XR 37.5 MG CAP PO SCH (09:00)
[2018-02-06] MEDS: PANTOPRAZOLE SODIUM 40 MG TABLET.DR PO SCH (09:00)
[2018-02-06] MEDS ORDERED: LABETALOL HCL 5 MG/ML 20ML VIAL IV ONE (09:00)
[2018-02-06] MEDS: ENOXAPARIN SODIUM 30 MG/0.3 ML SQ SCH ×2 (09:00→23:06)
[2018-02-06] MEDS: LISINOPRIL 10 MG TABLET PO SCH (09:00)
[2018-02-06] MEDS ORDERED: CEFAZOLIN SODIUM 1 GM VIAL ONE (09:36)
[2018-02-06] MEDS ORDERED: NEOSTIGMINE 5MG/5ML SYR IV ONE (10:07)
[2018-02-06] MEDS ORDERED: PHENYLEPHRINE HCL 10 MG/ML 1ML VIAL IV ONE (10:07)
[2018-02-06] MEDS ORDERED: GLYCOPYRROLATE 0.2 MG/ML 5 ML VIAL ONE (10:07)
[2018-02-06] MEDS ORDERED: ROCURONIUM BROMIDE 10MG/1ML 5ML VL ONE (10:07)
[2018-02-06] MEDS ORDERED: SUCCINYLCHOLINE 200MG/10ML SYR ONE (10:07)
[2018-02-06] MEDS ORDERED: VANCOMYCIN 1GM+NS 250ML 500 ML IV ONE (10:24)
[2018-02-06] MEDS ORDERED: ONDANSETRON HCL MDV 20ML 2 MG/ML VIAL ONE (12:19)
[2018-02-06] MEDS: LEVOFLOXACIN 750 MG/D5W 150 ML 150 ML IV SCH (15:44)
[2018-02-06] MEDS: VANCOMYCIN 1.25 GM in SODIUM CHLORIDE 0.9% 250 ML IV SCH (15:45)
[2018-02-06] MEDS: **HM**Cholecalciferol (Vitamin D3) (Vitamin D3) 1,000 UNIT PO SCH (21:00)
[2018-02-06] MEDS: ATORVASTATIN CALCIUM 40 MG TABLET PO SCH (23:07)
[2018-02-07] VITALS (8 sets, daily range): BP systolic 96–145; BP diastolic 52–76
[2018-02-07] MEDS ORDERED: LIDOCAINE HCL-MPF 1% 2ML VIAL IVP PRN (00:45)
[2018-02-07] MEDS ORDERED: POTASSIUM CHLORIDE 10% ELIXIR 20 MEQ/15 ML UDCUP PO PRN (00:45)
[2018-02-07] MEDS ORDERED: POTASSIUM CHLORIDE 20MEQ/100ML 100 ML IV PRN (00:45)
[2018-02-07] MEDS: MORPHINE SULFATE 4 MG/1ML SYG IV PRN (02:12)
[2018-02-07] MEDS: ZOSYN 3.375GM+NS 50ML 50 ML IV SCH ×3 (04:14→22:07)
[2018-02-07 05:23] LABS: MEAN CORPUSCULAR HGB CONC 33.4 g/dL (32.0-36.0); MEAN CORPUSCULAR VOLUME 83.7 fL (79-99); PLATELET COUNT (AUTO) 227 K/uL (130-400); RED CELL DISTRIBUTION WIDTH 16.3 % (11.0-15.5)
[2018-02-07 05:31] LABS: CREATININE 1.5 mg/dL (0.5-1.5); MAGNESIUM 1.8 mg/dL (1.80-2.40); POTASSIUM 3.6 mmol/L (3.5-5.1)
[2018-02-07] MEDS: MAGNESIUM 2GM PREMIX 50ML 50 ML IV SCH (05:55)
[2018-02-07] MEDS: IPRATROPIUM 0.5 MG/2.5 ML INH IH SCH ×4 (06:15→23:29)
[2018-02-07] MEDS: INSULIN HUMULIN R 100 UNIT/ML 3ML SQ SCH ×4 (07:54→22:06)
[2018-02-07] MEDS: PANTOPRAZOLE SODIUM 40 MG TABLET.DR PO SCH (08:04)
[2018-02-07] MEDS: DILTIAZEM HCL 180 MG CAP.SR.24H PO SCH (08:04)
[2018-02-07] MEDS: VENLAFAXINE HCL XR 37.5 MG CAP PO SCH (08:04)
[2018-02-07] MEDS: PREGABALIN 75 MG CAPSULE PO SCH (08:05)
[2018-02-07] MEDS: FUROSEMIDE 40 MG TABLET PO SCH ×2 (08:05→22:08)
[2018-02-07] MEDS: LEVOTHYROXINE 25 MCG TABLET PO SCH (08:05)
[2018-02-07] MEDS: LISINOPRIL 10 MG TABLET PO SCH (08:06)
[2018-02-07] MEDS: LEVETIRACETAM 500 MG TABLET PO SCH ×2 (08:06→22:08)
[2018-02-07] MEDS: POTASSIUM CHLORIDE 20 MEQ ERTAB PO PRN ×2 (08:07→22:11)
[2018-02-07] MEDS: ENOXAPARIN SODIUM 30 MG/0.3 ML SQ SCH ×2 (08:07→22:08)
[2018-02-07] MEDS: TRAMADOL HCL 50 MG TABLET PO PRN (08:51)
[2018-02-07] MEDS: VANCOMYCIN 1.25 GM in SODIUM CHLORIDE 0.9% 250 ML IV SCH (14:57)
[2018-02-07] MEDS: ACETAMINOPHEN EXTRA STRENGTH 500 MG TABLET PO SCH ×3 (14:58→22:12)
[2018-02-07] MEDS ORDERED: SODIUM CHLORIDE 0.9% 1000ML 1,000 ML IV ONE (20:59)
[2018-02-07] MEDS: **HM**Cholecalciferol (Vitamin D3) (Vitamin D3) 1,000 UNIT PO SCH (21:00)
[2018-02-07] MEDS ORDERED: SODIUM CHLORIDE 0.9% 1000ML 1,000 ML IV SCH ×2 (22:00→22:30)
[2018-02-07] MEDS: ATORVASTATIN CALCIUM 40 MG TABLET PO SCH (22:08)
[2018-02-07] MEDS: APIXABAN 2.5 MG TABLET PO SCH (22:08)
[2018-02-07] MEDS: FUROSEMIDE 10 MG/ML 4ML VIAL IV SCH (22:50)
[2018-02-07 22:53] LABS: HEMATOCRIT 24.8 % (42-54)
[2018-02-07] MEDS: ACETYLCYSTEINE 20% 200MG/ML 4ML VIAL IH SCH (23:29)
[2018-02-08] MEDS: ACETAMINOPHEN EXTRA STRENGTH 500 MG TABLET PO SCH ×6 (01:15→21:15)
[2018-02-08] MEDS: ZOSYN 3.375GM+NS 50ML 50 ML IV SCH ×3 (03:52→23:00)
[2018-02-08 04:00] VITALS: BP 87/53
[2018-02-08 04:06] LABS: BASOPHILS % (AUTO) 0.5 % (0.0-5.0); EOSINOPHILS % (AUTO) 3.2 % (0.0-8.0); HEMATOCRIT 22.1 % (42-54); LYMPHOCYTES % (AUTO) 17.7 % (21.0-51.0); MEAN CORPUSCULAR HGB CONC 34.3 g/dL (32.0-36.0); MEAN CORPUSCULAR VOLUME 84.7 fL (79-99); NEUTROPHILS % (AUTO) 67.6 % (40.0-77.0); PLATELET COUNT (AUTO) 211 K/uL (130-400); RED BLOOD CELL COUNT(AUTO) 2.61 MIL/uL (4.50-6.20); RED CELL DISTRIBUTION WIDTH 16.7 % (11.0-15.5); WHITE BLOOD COUNT (AUTO) 7.8 K/uL (4.8-10.8)
[2018-02-08 04:09] LABS: ABG BASE EXCESS -3.6 mmol/L (-2.0-3.0); ABG OXYGEN SATURATION 97.6 % (95.0-99.0); ABG PCO2 37 mmHg (35-48)
[2018-02-08 04:15] LABS: CREATININE 1.5 mg/dL (0.5-1.5); MAGNESIUM 1.8 mg/dL (1.80-2.40); POTASSIUM 3.5 mmol/L (3.5-5.1)
[2018-02-08] MEDS ORDERED: IOPAMIDOL-370 75 ML VIAL IV ONE (05:00)
[2018-02-08] MEDS: INSULIN HUMULIN R 100 UNIT/ML 3ML SQ SCH ×4 (05:57→21:00)
[2018-02-08] MEDS: LEVOTHYROXINE 25 MCG TABLET PO SCH (06:22)
[2018-02-08] MEDS: MAGNESIUM 2GM PREMIX 50ML 50 ML IV SCH (06:23)
[2018-02-08] MEDS: IPRATROPIUM 0.5 MG/2.5 ML INH IH SCH ×4 (06:43→23:25)
[2018-02-08] MEDS: ACETYLCYSTEINE 20% 200MG/ML 4ML VIAL IH SCH ×4 (06:43→23:26)
[2018-02-08 08:03] VITALS: BP 84/61
[2018-02-08] MEDS: ENOXAPARIN SODIUM 30 MG/0.3 ML SQ SCH (09:00)
[2018-02-08] MEDS: LISINOPRIL 10 MG TABLET PO SCH (09:00)
[2018-02-08] MEDS: DILTIAZEM HCL 180 MG CAP.SR.24H PO SCH (09:00)
[2018-02-08] MEDS: VENLAFAXINE HCL XR 37.5 MG CAP PO SCH (09:00)
[2018-02-08] MEDS: APIXABAN 2.5 MG TABLET PO SCH ×2 (09:47→23:00)
[2018-02-08] MEDS: FUROSEMIDE 40 MG TABLET PO SCH ×2 (09:50→23:01)
[2018-02-08] MEDS: LEVETIRACETAM 500 MG TABLET PO SCH ×2 (09:50→23:01)
[2018-02-08] MEDS: PANTOPRAZOLE SODIUM 40 MG TABLET.DR PO SCH (09:51)
[2018-02-08 11:29] VITALS: BP 85/50
[2018-02-08 11:43] LABS: HEMATOCRIT 21.3 % (42-54)
[2018-02-08] MEDS: LEVOFLOXACIN 750 MG/D5W 150 ML 150 ML IV SCH (15:20)
[2018-02-08] MEDS: LACTULOSE 20 GM/30 ML UDCUP PO PRN (15:20)
[2018-02-08] MEDS: TRAMADOL HCL 50 MG TABLET PO PRN (15:20)
[2018-02-08] MEDS: VANCOMYCIN 1.25 GM in SODIUM CHLORIDE 0.9% 250 ML IV SCH (15:22)
[2018-02-08 15:44] VITALS: BP 97/55
[2018-02-08] MEDS ORDERED: MAGNESIUM CITRATE 296 ML SOLUTION PO ONE (17:20)
[2018-02-08 20:00] VITALS: BP 107/63
[2018-02-08 20:19] LABS: HEMATOCRIT 24.5 % (42-54)
[2018-02-08] MEDS: **HM**Cholecalciferol (Vitamin D3) (Vitamin D3) 1,000 UNIT PO SCH (21:00)
[2018-02-08 22:05] VITALS: BP 102/58
[2018-02-08] MEDS: FUROSEMIDE 10 MG/ML 4ML VIAL IV SCH (22:30)
[2018-02-08] MEDS: ATORVASTATIN CALCIUM 40 MG TABLET PO SCH (23:00)
[2018-02-08] MEDS: POTASSIUM CHLORIDE 20 MEQ ERTAB PO PRN (23:01)
[2018-02-09] MEDS: ACETAMINOPHEN EXTRA STRENGTH 500 MG TABLET PO SCH ×6 (03:57→21:58)
[2018-02-09] MEDS: ZOSYN 3.375GM+NS 50ML 50 ML IV SCH ×3 (03:57→18:31)
[2018-02-09] MEDS: TRAMADOL HCL 50 MG TABLET PO PRN (05:40)
[2018-02-09 05:57] LABS: BASOPHILS % (AUTO) 0.7 % (0.0-5.0); EOSINOPHILS % (AUTO) 3.5 % (0.0-8.0); HEMATOCRIT 24.5 % (42-54); LYMPHOCYTES % (AUTO) 12.5 % (21.0-51.0); MEAN CORPUSCULAR HEMOGLOBIN 28.9 pg (27.0-33.0); MEAN CORPUSCULAR HGB CONC 34.8 g/dL (32.0-36.0); MEAN CORPUSCULAR VOLUME 83.2 fL (79-99); MONOCYTES % (AUTO) 8.8 % (3.0-13.0); NEUTROPHILS % (AUTO) 74.5 % (40.0-77.0); PLATELET COUNT (AUTO) 212 K/uL (130-400); RED BLOOD CELL COUNT(AUTO) 2.94 MIL/uL (4.50-6.20); WHITE BLOOD COUNT (AUTO) 6.2 K/uL (4.8-10.8)
[2018-02-09 06:08] LABS: CREATININE 1.5 mg/dL (0.5-1.5); POTASSIUM 3.8 mmol/L (3.5-5.1)
[2018-02-09 06:12] VITALS: BP 106/69
[2018-02-09] MEDS: IPRATROPIUM 0.5 MG/2.5 ML INH IH SCH ×4 (06:34→23:16)
[2018-02-09] MEDS: ACETYLCYSTEINE 20% 200MG/ML 4ML VIAL IH SCH ×4 (06:34→23:17)
[2018-02-09] MEDS: INSULIN HUMULIN R 100 UNIT/ML 3ML SQ SCH ×4 (06:41→21:00)
[2018-02-09] MEDS: VENLAFAXINE HCL XR 37.5 MG CAP PO SCH (08:00)
[2018-02-09] MEDS: FUROSEMIDE 40 MG TABLET PO SCH ×2 (08:00→21:58)
[2018-02-09] MEDS: APIXABAN 2.5 MG TABLET PO SCH ×2 (08:00→21:57)
[2018-02-09] MEDS: LEVOTHYROXINE 25 MCG TABLET PO SCH (08:00)
[2018-02-09] MEDS: LEVETIRACETAM 500 MG TABLET PO SCH ×2 (08:00→21:57)
[2018-02-09] MEDS: PANTOPRAZOLE SODIUM 40 MG TABLET.DR PO SCH (08:00)
[2018-02-09] MEDS: DILTIAZEM HCL 180 MG CAP.SR.24H PO SCH (08:02)
[2018-02-09 08:04] VITALS: BP 107/54
[2018-02-09] MEDS: LISINOPRIL 10 MG TABLET PO SCH (08:04)
[2018-02-09 10:58] VITALS: BP 107/54
[2018-02-09] MEDS ORDERED: MAGNESIUM CITRATE 296 ML SOLUTION PO ONE (13:30)
[2018-02-09] MEDS: VANCOMYCIN 1.25 GM in SODIUM CHLORIDE 0.9% 250 ML IV SCH (14:10)
[2018-02-09 16:32] VITALS: BP 104/53
[2018-02-09] MEDS ORDERED: LACTULOSE 20 GM/30 ML UDCUP PO ONE (19:00)
[2018-02-09 19:15] VITALS: BP 101/61
[2018-02-09] MEDS: **HM**Cholecalciferol (Vitamin D3) (Vitamin D3) 1,000 UNIT PO SCH (21:00)
[2018-02-09] MEDS: ATORVASTATIN CALCIUM 40 MG TABLET PO SCH (21:57)
[2018-02-09] MEDS: FUROSEMIDE 10 MG/ML 4ML VIAL IV SCH (22:30)
[2018-02-09 23:30] VITALS: BP 122/63
[2018-02-10] MEDS: ACETAMINOPHEN EXTRA STRENGTH 500 MG TABLET PO SCH ×6 (01:15→21:15)
[2018-02-10] MEDS: ZOSYN 3.375GM+NS 50ML 50 ML IV SCH ×3 (03:05→21:13)
[2018-02-10 03:50] VITALS: BP 120/60
[2018-02-10] MEDS: IPRATROPIUM 0.5 MG/2.5 ML INH IH SCH ×3 (06:11→18:22)
[2018-02-10] MEDS: ACETYLCYSTEINE 20% 200MG/ML 4ML VIAL IH SCH ×3 (06:12→18:22)
[2018-02-10] MEDS: LEVOTHYROXINE 25 MCG TABLET PO SCH (07:01)
[2018-02-10] MEDS: INSULIN HUMULIN R 100 UNIT/ML 3ML SQ SCH ×4 (07:01→21:00)
[2018-02-10 08:00] VITALS: BP 124/58
[2018-02-10] MEDS: LISINOPRIL 10 MG TABLET PO SCH (09:00)
[2018-02-10] MEDS: DILTIAZEM HCL 180 MG CAP.SR.24H PO SCH (09:00)
[2018-02-10] MEDS: PANTOPRAZOLE SODIUM 40 MG TABLET.DR PO SCH (11:20)
[2018-02-10] MEDS: APIXABAN 2.5 MG TABLET PO SCH ×2 (11:20→21:13)
[2018-02-10] MEDS: VENLAFAXINE HCL XR 37.5 MG CAP PO SCH (11:20)
[2018-02-10] MEDS: LEVETIRACETAM 500 MG TABLET PO SCH ×2 (11:20→21:13)
[2018-02-10] MEDS: FUROSEMIDE 40 MG TABLET PO SCH ×2 (11:20→21:16)
[2018-02-10 11:23] VITALS: BP 117/60
[2018-02-10 16:00] VITALS: BP 112/64
[2018-02-10] MEDS: LEVOFLOXACIN 750 MG/D5W 150 ML 150 ML IV SCH (17:53)
[2018-02-10 19:30] VITALS: BP 102/65
[2018-02-10] MEDS: **HM**Cholecalciferol (Vitamin D3) (Vitamin D3) 1,000 UNIT PO SCH (21:00)
[2018-02-10] MEDS: ATORVASTATIN CALCIUM 40 MG TABLET PO SCH (21:13)
[2018-02-10 23:55] VITALS: BP 111/66
[2018-02-11] MEDS: ACETYLCYSTEINE 20% 200MG/ML 4ML VIAL IH SCH (00:06)
[2018-02-11] MEDS: IPRATROPIUM 0.5 MG/2.5 ML INH IH SCH (00:10)
[2018-02-11] MEDS ORDERED: VANCOMYCIN 750MG + NS 250 ML IV SCH ×2 (13:00)
== END 2018-02-11 02:40 | DRG 463 ==
LOC: EDH 18:00 → EDHIP 20:29 → 3DH 23:36
PROVIDERS: ADMIT Internal Medicine Nephrology; ATTEND Internal Medicine Nephrology
PROC: 02HV33Z Insertion of Infusion Device into Superior Vena Cava, Percutaneous Approach (ICD-10-PCS; 2018-02-01)
PROC: 0SBB0ZZ Excision of Left Hip Joint, Open Approach (ICD-10-PCS; principal; 2018-02-02 19:23)
PROC: 2W1PX6Z Compression of Left Upper Leg using Pressure Dressing (ICD-10-PCS; 2018-02-02 19:23)
PROC: 0SHB08Z Insertion of Spacer into Left Hip Joint, Open Approach (ICD-10-PCS; 2018-02-06)
PROC: 30233N1 Transfusion of Nonautologous Red Blood Cells into Peripheral Vein, Percutaneous Approach (ICD-10-PCS; 2018-02-06)
PROC: 0SPB0JZ Removal of Synthetic Substitute from Left Hip Joint, Open Approach (ICD-10-PCS; 2018-02-06 08:02)
DX: T84.52XA Infection and inflammatory reaction due to internal left hip prosthesis, initial encounter (principal); J18.9 Pneumonia, unspecified organism; A41.9 Sepsis, unspecified organism; E11.22 Type 2 diabetes mellitus with diabetic chronic kidney disease; E11.40 Type 2 diabetes mellitus with diabetic neuropathy, unspecified; E87.70 Fluid overload, unspecified; N18.3 Chronic kidney disease, stage 3 (moderate); T81.31XA Disruption of external operation (surgical) wound, not elsewhere classified, initial encounter; I69.351 Hemiplegia and hemiparesis following cerebral infarction affecting right dominant side; I69.354 Hemiplegia and hemiparesis following cerebral infarction affecting left non-dominant side; I48.91 Unspecified atrial fibrillation; Z79.84 Long term (current) use of oral hypoglycemic drugs; K21.9 Gastro-esophageal reflux disease without esophagitis; E03.9 Hypothyroidism, unspecified; E78.5 Hyperlipidemia, unspecified; Y95 Nosocomial condition; D63.8 Anemia in other chronic diseases classified elsewhere; E83.42 Hypomagnesemia; F03.90 Unspecified dementia, unspecified severity, without behavioral disturbance, psychotic disturbance, mood disturbance, and anxiety; G40.909 Epilepsy, unspecified, not intractable, without status epilepticus; I12.9 Hypertensive chronic kidney disease with stage 1 through stage 4 chronic kidney disease, or unspecified chronic kidney disease; I25.10 Atherosclerotic heart disease of native coronary artery without angina pectoris; M85.80 Other specified disorders of bone density and structure, unspecified site; R79.1 Abnormal coagulation profile; Y83.1 Surgical operation with implant of artificial internal device as the cause of abnormal reaction of the patient, or of later complication, without mention of misadventure at the time of the procedure; Z74.01 Bed confinement status; Z79.01 Long term (current) use of anticoagulants; Z88.8 Allergy status to other drugs, medicaments and biological substances; Z82.3 Family history of stroke
CPT/HCPCS: 36415; 36430; 36600; 71045; 71250; 73700; 76000; 78580; 80048; 80053; 80202; 81003; 82803; 82948; 83605; 83735; 85014; 85018; 85025; 85027; 85378; 85610; 85651; 85730; 86140; 86850; 86900; 86901; 86922; 87040; 87070; 87076; 87205; 87633; 88300; 92610; 93005; 94640; 94664; 94667; 94668; 97039; A4344; A9540; C1713; C1776; C1894; C9113; J0330; J0690; J1580; J1650; J1815; J1940; J1956; J2001; J2175; J2270; J2370; J2543; J2704; J2710; J3010; J3370; J3475; J3480; J3490; J7030; J7042; J7120; J7608; P9016; Q9967

== ENCOUNTER 2018-02-16 12:15 | Inpatient (IN) | payer MEDICARE ==
[~2018-02-16] VITALS: Ht 177.8 cm; Wt 72.6 kg
[~2018-02-16 12:15] MED LIST changes: +APIX2.5T PO; +FURO-151 PO; +TRAM50TA2 PO; -TRAM50TA4 PO; +VENL75CA55 PO; -VENL75CA97 PO; -WARF2TAB57 PO; -WARF4TAB41 PO
[2018-02-16 12:52] LABS: BASOPHILS % (AUTO) 0.5 % (0.0-5.0); EOSINOPHILS % (AUTO) 6.4 % (0.0-8.0); HEMATOCRIT 26.6 % (42-54); LYMPHOCYTES % (AUTO) 15.6 % (21.0-51.0); MEAN CORPUSCULAR HEMOGLOBIN 28.9 pg (27.0-33.0); MEAN CORPUSCULAR HGB CONC 34.5 g/dL (32.0-36.0); MEAN CORPUSCULAR VOLUME 83.7 fL (79-99); MONOCYTES % (AUTO) 8.8 % (3.0-13.0); NEUTROPHILS % (AUTO) 68.7 % (40.0-77.0); PLATELET COUNT (AUTO) 188 K/uL (130-400); RED BLOOD CELL COUNT(AUTO) 3.18 MIL/uL (4.50-6.20); WHITE BLOOD COUNT (AUTO) 7.1 K/uL (4.8-10.8)
[2018-02-16 12:57] LABS: POTASSIUM 3.8 mmol/L (3.5-5.1)
[2018-02-16 13:07] LABS: INR 1.1 (0.85-1.15); PROTHROMBIN TIME 11.5 SEC (9.6-11.6)
[2018-02-16 13:13] LABS: BILIRUBIN,TOTAL 0.5 mg/dL (0.2-1.0); CREATINE KINASE MB 0.8 ng/mL (0.5-3.6)
[2018-02-16 16:37] LABS: APPEARANCE,URINE Clear (CLEAR); BILIRUBIN,URINE Negative (NEGATIVE); COLOR,URINE Yellow (YELLOW); GLUCOSE, URINE (UA) Negative (NEGATIVE); KETONES,URINE Negative (NEGATIVE); LEUKOCYTE ESTERASE ,URINE Negative (NEGATIVE); NITRATE,URINE Negative (NEGATIVE); OCCULT BLOOD,URINE Negative (NEGATIVE); PROTEIN,URINE Negative (NEGATIVE); UROBILINOGEN,URINE 0.2 mg/dL (0.2-1.0)
[2018-02-16 18:55] VITALS: BP 122/66
[2018-02-16] MEDS ORDERED: VANCOMYCIN PROTOCOL PER PHARMACY IV SCH (19:45)
[2018-02-16] MEDS: SODIUM CHLORIDE 0.9% 1000ML 1,000 ML IV SCH (20:00)
[2018-02-16] MEDS: ZOSYN 3.375GM+NS 50ML 50 ML IV SCH (21:01)
[2018-02-16] MEDS: VANCOMYCIN 1GM+NS 250ML 250 ML IV SCH (21:01)
[2018-02-17] VITALS (7 sets, daily range): BP systolic 121–152; BP diastolic 61–77
[2018-02-17] MEDS ORDERED: POTASSIUM CHLORIDE 20MEQ/100ML 100 ML IV PRN (00:15)
[2018-02-17] MEDS ORDERED: DEXTROSE 50%-WATER 50 ML DISP.SYRIN IV PRN (00:15)
[2018-02-17] MEDS ORDERED: LIDOCAINE HCL-MPF 1% 2ML VIAL IVP PRN (00:15)
[2018-02-17] MEDS ORDERED: POTASSIUM CHLORIDE 20 MEQ ERTAB PO PRN (00:15)
[2018-02-17] MEDS ORDERED: GLUCAGON 1MG KIT 1 MG ML IM PRN (00:15)
[2018-02-17] MEDS ORDERED: POTASSIUM CHLORIDE 10% ELIXIR 20 MEQ/15 ML UDCUP PO PRN (00:15)
[2018-02-17] MEDS ORDERED: PREG25 PO (02:31)
[2018-02-17] MEDS ORDERED: ACET-2743 PO (02:31)
[2018-02-17] MEDS ORDERED: MINE60OI TP (02:31)
[2018-02-17] MEDS ORDERED: CLOT15C TP (02:31)
[2018-02-17] MEDS ORDERED: INSREG SQ (02:44)
[2018-02-17] MEDS ORDERED: ACETYLCYSTEINE IH (02:44)
[2018-02-17] MEDS ORDERED: LEVA0.6312 IH (02:50)
[2018-02-17] MEDS: INSULIN HUMULIN R 100 UNIT/ML 3ML SQ SCH ×4 (06:13→21:00)
[2018-02-17] MEDS: SODIUM CHLORIDE 0.9% 1000ML 1,000 ML IV SCH (08:30)
[2018-02-17] MEDS: ZOSYN 3.375GM+NS 50ML 50 ML IV SCH ×2 (08:51→21:05)
[2018-02-17 11:20] LABS: HEMATOCRIT 26.2 % (42-54); MEAN CORPUSCULAR HEMOGLOBIN 28.7 pg (27.0-33.0); MEAN CORPUSCULAR HGB CONC 34.2 g/dL (32.0-36.0); MEAN CORPUSCULAR VOLUME 83.8 fL (79-99); PLATELET COUNT (AUTO) 171 K/uL (130-400); RED BLOOD CELL COUNT(AUTO) 3.13 MIL/uL (4.50-6.20); RED CELL DISTRIBUTION WIDTH 16.7 % (11.0-15.5); WHITE BLOOD COUNT (AUTO) 5.7 K/uL (4.8-10.8)
[2018-02-17 11:25] LABS: CREATININE 1.6 mg/dL (0.5-1.5); POTASSIUM 3.4 mmol/L (3.5-5.1)
[2018-02-17] MEDS: ACETAMINOPHEN 325 MG TAB PO PRN (15:38)
[2018-02-17] MEDS: VANCOMYCIN 1GM+NS 250ML 250 ML IV SCH (20:04)
[2018-02-18] MEDS: SODIUM CHLORIDE 0.9% 1000ML 1,000 ML IV SCH ×2 (01:08→08:22)
[2018-02-18 03:03] VITALS: BP 142/67
[2018-02-18 03:48] LABS: BASOPHILS % (AUTO) 0.5 % (0.0-5.0); EOSINOPHILS % (AUTO) 6.5 % (0.0-8.0); HEMATOCRIT 26.6 % (42-54); LYMPHOCYTES % (AUTO) 19.7 % (21.0-51.0); MEAN CORPUSCULAR HEMOGLOBIN 28.8 pg (27.0-33.0); MEAN CORPUSCULAR HGB CONC 33.7 g/dL (32.0-36.0); MEAN CORPUSCULAR VOLUME 85.2 fL (79-99); MONOCYTES % (AUTO) 9.9 % (3.0-13.0); NEUTROPHILS % (AUTO) 63.4 % (40.0-77.0); PLATELET COUNT (AUTO) 177 K/uL (130-400); RED BLOOD CELL COUNT(AUTO) 3.13 MIL/uL (4.50-6.20); RED CELL DISTRIBUTION WIDTH 16.7 % (11.0-15.5); WHITE BLOOD COUNT (AUTO) 5.1 K/uL (4.8-10.8)
[2018-02-18 04:11] LABS: ALBUMIN 1.9 g/dL (3.5-5.0); BILIRUBIN,TOTAL 0.6 mg/dL (0.2-1.0); CREATININE 1.7 mg/dL (0.5-1.5); POTASSIUM 3.7 mmol/L (3.5-5.1); TOTAL PROTEIN, SERUM 5.9 g/dL (6.0-8.3)
[2018-02-18] MEDS: INSULIN HUMULIN R 100 UNIT/ML 3ML SQ SCH ×4 (06:02→21:00)
[2018-02-18] MEDS: ZOSYN 3.375GM+NS 50ML 50 ML IV SCH ×2 (08:22→21:00)
[2018-02-18 09:30] VITALS: BP 163/62
[2018-02-18 11:52] VITALS: BP 133/71
[2018-02-18] MEDS: ACETAMINOPHEN 325 MG TAB PO PRN ×2 (13:59→21:01)
[2018-02-18] MEDS ORDERED: HYDRALAZINE HCL 20 MG/ML VIAL IV PRN (15:30)
[2018-02-18 16:00] VITALS: BP 163/66
[2018-02-18 19:03] VITALS: BP 137/72
[2018-02-18] MEDS: VANCOMYCIN 1GM+NS 250ML 250 ML IV SCH (20:16)
[2018-02-18 23:16] VITALS: BP 140/75
[2018-02-19] MEDS ORDERED: TRAMADOL HCL 50 MG TABLET PO PRN ×2 (00:45→06:45)
[2018-02-19] MEDS ORDERED: TRAMADOL HCL 50 MG TABLET ONE (01:00)
[2018-02-19 03:17] VITALS: BP 150/90
[2018-02-19] MEDS: SODIUM CHLORIDE 0.9% 1000ML 1,000 ML IV SCH ×2 (03:52→09:08)
[2018-02-19] MEDS: ACETAMINOPHEN 325 MG TAB PO PRN ×2 (04:54→15:42)
[2018-02-19] MEDS: INSULIN HUMULIN R 100 UNIT/ML 3ML SQ SCH ×2 (06:02→11:30)
[2018-02-19 08:15] VITALS: BP 148/79
[2018-02-19] MEDS: ZOSYN 3.375GM+NS 50ML 50 ML IV SCH (09:08)
[2018-02-19 12:16] VITALS: BP 143/85
[2018-02-19] MEDS ORDERED: LORAZEPAM 1 MG TABLET PO PRN (16:00)
== END 2018-02-19 16:35 | disposition hospice, home (50) | DRG 682 ==
LOC: EDH 12:15 → EDHIP 15:12 → 3CH 18:41
PROVIDERS: ADMIT Internal Medicine Nephrology; ATTEND Internal Medicine Nephrology
DX: N17.9 Acute kidney failure, unspecified (principal); J18.9 Pneumonia, unspecified organism; E11.22 Type 2 diabetes mellitus with diabetic chronic kidney disease; E11.40 Type 2 diabetes mellitus with diabetic neuropathy, unspecified; E11.51 Type 2 diabetes mellitus with diabetic peripheral angiopathy without gangrene; I48.2 Chronic atrial fibrillation; I69.354 Hemiplegia and hemiparesis following cerebral infarction affecting left non-dominant side; D64.9 Anemia, unspecified; G40.909 Epilepsy, unspecified, not intractable, without status epilepticus; E03.9 Hypothyroidism, unspecified; E78.00 Pure hypercholesterolemia, unspecified; E78.5 Hyperlipidemia, unspecified; I12.9 Hypertensive chronic kidney disease with stage 1 through stage 4 chronic kidney disease, or unspecified chronic kidney disease; K21.9 Gastro-esophageal reflux disease without esophagitis; F41.9 Anxiety disorder, unspecified; F32.9 Major depressive disorder, single episode, unspecified; I05.0 Rheumatic mitral stenosis; I25.10 Atherosclerotic heart disease of native coronary artery without angina pectoris; N18.9 Chronic kidney disease, unspecified; Z96.649 Presence of unspecified artificial hip joint; Y95 Nosocomial condition; Z51.5 Encounter for palliative care; Z88.8 Allergy status to other drugs, medicaments and biological substances; Z79.4 Long term (current) use of insulin; Z74.01 Bed confinement status; Z79.01 Long term (current) use of anticoagulants
CPT/HCPCS: 36415; 71045; 80048; 80053; 81003; 82550; 82553; 82948; 83540; 83550; 84484; 85025; 85027; 85610; 85730; 86160; 87040; 87088; 93005; 93925; 93930; 99291; J2543; J3370; J3480; J3490; J7030